=== PATIENT | female | born 2000 | race Two or more races ===

== ENCOUNTER 2024-05-31 08:41 | Outpatient (RCR) | payer OTHER, MEDICAID, SELFPAY ==
--- NOTE | 2024-05-31 08:50 | XR_ITS ---
Examination: Biophysical profile, ultrasound Date and time of exam: May 31, 2024 0854 hours INDICATIONS: Vaginal pressure and pain beginning one week ago, diagnosis maternal obesity Technique: Multiple transabdominal sonographic images of the pelvis abdomen obtained. Attention is directed to the breathing movement, gross body movement, amniotic fluid volume and tone. Findings: Amniotic fluid index 11.9 cm Total biophysical profile is 8 of 8. breathing movement is 2. Gross body movement is 2. tone is 2. Qualitative amniotic fluid volume is 2 Impression: Biophysical profile is 8 of 8.
[2024-05-31 09:48] VITALS: BP 132/77; PULSE 100; RESP 16; TEMP 36.7
== END 2024-05-31 23:59 | disposition home or self-care (01) ==
LOC: S4S1 08:41
PROVIDERS: Referring Provider Nurse Practitioner Women's Health; Visit Provider Nurse Practitioner Women's Health
DX: O99.213 Obesity complicating pregnancy, third trimester (principal); E66.9 Obesity, unspecified; Z3A.35 35 weeks gestation of pregnancy
CPT/HCPCS: 59025; 76819

== ENCOUNTER 2024-08-04 02:31 | Emergency (ER) | payer BC, MEDICAID, SELFPAY ==
[2024-08-04 02:31] VITALS: BMI 47.2
[2024-08-04 03:57] VITALS: BP 123/80; PULSE 96; RESP 16; TEMP 36.7; O2SAT 100
--- NOTE | 2024-08-04 04:05 | PD.EDRME ---
Rapid Medical Screening Exam RME Arrival date/time: 08/04/24 02:31 24-year-old female presents to the ED with a complaint of abdominal pain in the upper left and right quadrants with vomiting up to 2-3 times. Pain began early this morning. Past medical history includes on June 27 of this year. No pain to the upper left and upper right quadrant is equal in its intensity Chief Complaint: Abdominal Pain Vital signs: Vital Signs Temperature 98.1 F 08/04/24 03:57 Pulse Rate 96 08/04/24 03:57 Respiratory Rate 16 08/04/24 03:57 Blood Pressure 123/80 08/04/24 03:57 Pulse Oximetry (%) 100 08/04/24 03:57 Oxygen Delivery Method Room Air 08/04/24 03:57 Pulse ox room air 100% Vital signs reviewed by provider: Yes
[2024-08-04 04:51] LABS: Bilirubin,Urine Negative (Negative); Blood,Urine Negative (Negative); Clarity,Urine Clear (Clear/Hazy); Collection Type, Urine Clean Catch; Color,Urine Yellow (Lt Yel-Yel); Glucose, Urine Negative (Negative); Ketones,Urine Negative (Negative); Leukocyte Esterase,Urine Positive (Negative); Nitrite,Urine Negative (Negative); Protein,Urine Trace (Neg - Trace); RBC,Urine 0 /hpf (0-3); Specific Gravity,Urine 1.038 (1.001-1.035); Squamous Epithelial Cell,Urine 4 /hpf (0-5); WBC,Urine 11 /hpf (0-5)
[2024-08-04 04:52] LABS: Basophils % (Auto) 0 % (0-2.5); Eosinophils # (Auto) 0.3 Thou/mm3 (0.0-0.5); Eosinophils % (Auto) 2 % (0-10); Hematocrit 37.1 % (36.0-46.0); Hemoglobin 11.4 g/dL (12.0-16.0); Immature Granulocytes % (Auto) 1 % (0-0); Immature Granulocytes Auto 0.09 Thou/mm3 (0.00-0.00); Lymphocytes # (Auto) 1.6 Thou/mm3 (1.0-4.8); Lymphocytes % (Auto) 11 % (10-50); Mean Corpuscular HGB Conc 30.7 g/dl (31.0-37.0); Mean Corpuscular Hemoglobin 24.4 pg (25.0-35.0); Mean Corpuscular Volume 79 fL (80-100); Monocytes # (Auto) 0.9 Thou/mm3 (0.0-0.8); Monocytes % (Auto) 6 % (0-12); Neutrophils # (Auto) 11.9 Thou/mm3 (1.8-7.7); Neutrophils % (Auto) 80 % (37-80); Nucleated Red Blood Cell % 0 /100 WBC (0); Platelet Count 243 Thou/mm3 (140-440); RDW Standard Deviation 42.9 fL (36.4-46.3); Red Blood Count 4.68 Miln/mm3 (4.00-5.20); White Blood Count 14.9 Thou/mm3 (3.6-11.0)
[2024-08-04 04:58] LABS: HCG Qualitative,Urine Negative
[2024-08-04 05:13] LABS: Alanine Aminotransferase 59 U/L (10-49); Albumin, Serum 4.3 gm/dL (3.5-5.0); Albumin/Globulin Ratio 1.4 (1.2-2.2); Alkaline Phosphatase 244 U/L (46-116); Anion Gap 8 (7-16); Aspartate Amino Transferase 112 U/L (0-34); BUN/Creatinine Ratio 24 Ratio (12-20); Bilirubin,Total 0.5 mg/dL (0.3-1.2); Blood Urea Nitrogen 19 mg/dL (9-23); Calcium 8.8 mg/dL (8.3-10.6); Calcium (Corrected) 8.8 mg/dL (8.5-10.1); Chloride 108 mMol/L (98-107); Creatinine (Component) 0.8 mg/dL (0.6-1.3); Estimated Creatinine Clearance 140.4 mL/min (>60); Glucose 109 mg/dL (74-106); Lipase 44 U/L (12-53); Osmolality,Calculated 282 (275-295); Potassium 4.4 mMol/L (3.4-5.1); Sodium 140 mMol/L (136-145); Total Protein 7.3 gm/dL (5.7-8.2); eGFR > 60 See Note
[2024-08-04] MEDS: KETOROLAC INJ 60 MG/2 ML VIAL 30 MG IM (05:23)
--- NOTE | 2024-08-04 05:50 | EDNOTE_ITS ---
ED Abdominal Pain RME/HPI General Chief Complaint: Abdominal Pain Stated complaint: ABD PAIN , VOMITING AND NAUSEA X 10MINS Time seen by provider: 08/04/24 05:50 Arrival date/time: 08/04/24 02:31 Limitations: no limitations RME / HPI RME / HPI narrative: 08/04/24 02:31 24-year-old female presents to the ED with a complaint of abdominal pain in the upper left and right quadrants with vomiting up to 2-3 times. Pain began early this morning. Past medical history includes on June 27 of this year. No pain to the upper left and upper right quadrant is equal in its intensity MD complaint: abdominal pain Onset (ago): day(s) (1 day) Consistency: now resolved Related Data Previous Rx's ?Medication ?Instructions ?Recorded amoxicillin 875 mg-potassium 1 tab PO BID #14 tabs 06/18 clavulanate 125 mg tablet naproxen 500 mg tablet 500 mg PO BID PRN pain #30 t abs 09/28/22 ondansetron 4 mg disintegrating 4 mg PO Q8H #10 tabs 0 08/04/24 tablet Allergies Allergy/AdvReac Type Severity Reaction Status Date / Time Sulfa (Sulfonamide Allergy Severe Rash Verified 11/07/23 20:52 Antibiotics) Penicillins Allergy Rash Verified 11/07/23 20:52 Review of Systems Constitutional Constitutional: Reports system reviewed and no additional complaints, except as documented Eyes Eyes: Reports system reviewed and no additional complaints, except as documented, Denies dry eyes, Denies exophthalmos and Reports floaters Cardiovascular Cardiovascular: Denies chest pain with activity and Denies claudication Gastrointestinal Gastrointestinal: Reports system reviewed and no additional complaints, except as documented, Reports as per HPI and Reports abdominal pain Genitourinary Genitourinary: Reports system reviewed and no additional complaints, except as documented and Reports as per HPI Musculoskeletal Musculoskeletal: Reports system reviewed and no additional complaints, except as documented and Reports as per HPI Integumentary/Breasts Skin/Breast: Reports system reviewed and no additional complaints, except as documented and Reports as per HPI Neurologic Neurologic: Reports system reviewed and no additional complaints, except as documented and Reports as per HPI Psychiatric Psychiatric: Reports system reviewed and no additional complaints, except as documented and Reports as per HPI Past Medical History Past Medical History Comments PM COMMENT: Patient is June 27, 2024 ED Exam General Limitations: Present no limitations General appearance: Present alert and in no apparent distress Head Head exam: Present atraumatic Eye Eye exam: Present normal appearance, PERRL and EOMI ENT ENT exam: Present normal exam, normal oropharynx and mucous membranes moist Neck Neck exam: Present normal inspection, full ROM and trachea midline Chest Chest inspection: Present normal inspection and symmetric chest wall rise Respiratory Respiratory exam: Present normal lung sounds bilaterally Cardiovascular Cardiovascular exam: Present regular rate, normal rhythm and normal heart sounds Abdominal Exam Abdominal exam: Present soft (Abdomen is soft nontender without any apparent masses negative for rebound. No Ruiz sign present. ) and normal bowel sounds Extremities Exam Extremities exam: Present normal inspection and full ROM Back Exam Back exam: Present normal inspection and full ROM Neurological Exam Neurological exam: Present alert, oriented X3 and CN II-XII intact Psychiatric Psychiatric exam: Present normal affect and normal mood Skin Skin exam: Present warm, dry, intact and normal color Course Course Course Narrative: Patient had 30 mg of Toradol IM. She also had a CBC, CMP, hCG, lipase, UA, all of which were negative with the exception of the white count of the CBC which was approximately 14,000+. Quality Measures none Orders Category Date Time Status CBC Stat Lab 08/04/24 04:45 Completed Comprehensive Metabolic Panel Stat Lab 08/04/24 04:45 Completed HCG Qualitative,Urine Stat Lab 08/04/24 04:07 Completed Lipase Stat Lab 08/04/24 04:45 Completed Urinalysis Stat Lab 08/04/24 04:07 Completed Ketorolac Inj [Toradol Inj] Med 08/04/24 04:08 Discontinued 30 mg IM X1 ONE Vital Signs Vital signs: Vital Signs Temperature 98.1 F 08/04/24 03:57 Pulse Rate 96 08/04/24 03:57 Respiratory Rate 16 08/04/24 03:57 Blood Pressure 123/80 08/04/24 03:57 Pulse Oximetry (%) 100 08/04/24 03:57 Oxygen Delivery Method Room Air 08/04/24 03:57 PO2 is 100% room air Abdominal Pain MDM MDM Narrative MDM Narrative:: Patient will have Zofran 4 mg sent to the pharmacy of her choice and she is to primary care physician for follow-up to today's visit this coming week. If she is worse she may return here for further evaluation. Patient data External records reviewed:: Other (specify) Clinical information provided by:: none Social determinants that could affect healthcare access:: none Patient has the following chronic illnesses:: N/A How is presenting disease/condition affected by chronic disease/condition?: no chronic disease Evaluation data The following diagnostics were reviewed and interpreted by me:: other (specify) Lab and/or radiology exams considered but not ordered:: N/A Interpretation Summary: N/A Medications / Prescriptions Medications or Prescriptions considered but not ordered:: N/A Medication administrations:: Medication Administration History Discontinued Medications Ketorolac Tromethamine (Ketorolac Inj 60 Mg/2 Ml Vial) 30 mg IM X1 ONE Stop: 08/04/24 04:09 Last Admin: 08/04/24 05:23 Dose: 30 mg Documented By: JE Given Consultations Consultation(s) initiated? (list below): No Diagnosis Differential diagnosis abdominal pain: abdominal pain, acute appendicitis, calculus of kidney, gastroenteritis and pancreatitis Most likely diagnosis given after review of the tests above:: N/A Admission Indicated Admission indicated?: not indicated Admission Request Was there a request for admission?: No Disposition Plan Disposition Plan: Discharge Discharge Attestation Discharge Attestation: The patient and all family members were given an opportunity to ask questions and understood the discharge instructions. Discharge instructions specifically effects, indications for sooner follow up or return to the emergency department, and the expected course of current diagnosis. Patient condition: Stable Discharge Plan Plan Patient Disposition: HOME (Self Care) Discharge Disposition comment: Patient is discharged in no apparent distress Patient condition on transfer: Stable Prescriptions/Referrals Prescriptions/Med Rec: New ondansetron 4 mg tablet,disintegrating 4 mg PO Q8H Qty: 10 0RF No Action naproxen 500 mg tablet 500 mg PO BID PRN (Reason: pain) Qty: 30 0RF amoxicillin-pot clavulanate 875-125 mg tablet 1 tab PO BID Qty: 14 0RF Referrals: Jb Moura MD [Primary Care Provider] - In 1 week Problem List Clinical Impression: Abdominal pain Patient/Caregiver Discharge Instructions Education Materials: Abdominal Pain Print Language: Frisian JOHNNY/LUIS EDUARDO Supervising Physician JOHNNY/LUIS EDUARDO Supervising Physician: Yuli
== END 2024-08-04 06:15 | disposition home or self-care (01) ==
PROVIDERS: Physician Assistant; Emergency Provider Emergency Medicine; PCP Family Medicine
DX: R10.11 Right upper quadrant pain (principal); R10.12 Left upper quadrant pain; R11.2 Nausea with vomiting, unspecified
CPT/HCPCS: 36415; 80053; 81001; 81025; 83690; 85025; 96372; 99283; J1885

== ENCOUNTER 2025-03-02 00:26 | Emergency (ER) | payer BC, MEDICAID, SELFPAY ==
[2025-03-02 00:27] VITALS: BMI 44.6
[2025-03-02 01:52] VITALS: BP 121/65; PULSE 106; RESP 20; TEMP 36.9; O2SAT 97
--- NOTE | 2025-03-02 02:00 | XR_ITS ---
Examination: Complete OB ultrasound, less than 14 weeks, transabdominal Date and time of exam: March 02, 2025, 0410 hours INDICATIONS: Onset pelvic cramping today Technique: Obstetrical ultrasound images less than 14 weeks performed via transabdominal imaging Findings: A normal shaped single intrauterine gestation is present in the uterus. CRL 3.7 cm corresponds to 10 weeks 4 days gestational age Cardiac motion 176 bpm No subchorionic hemorrhage Ultrasonographic survey of visible and placental structures unremarkable. Amniotic fluid volume appears appropriate for this estimated gestational age. Right ovary 4.8 cm arterial flow Left ovary obscured by bowel gas IMPRESSION: Viable intrauterine gestation 10 weeks 4 days
--- NOTE | 2025-03-02 02:01 | XR_ITS ---
Examination: Abdomen sonogram, Limited Date and time of exam: March 02, 2025, 0418 hours INDICATIONS: Onset abdominal pelvic cramping today Technique: Real-time whittington scale transabdominal sonographic images of the upper abdomen obtained. Findings: Normal gallbladder Normal common bile duct 0.3 cm Pancreatic head 2.5 cm Liver 17.5 cm fatty infiltration lobular contour Normal hepatopetal portal venous flow Patent IVC IMPRESSION: Normal gallbladder Normal common bile duct Mild to moderate hepatomegaly no focal liver lesions
--- NOTE | 2025-03-02 02:01 | PD.EDRME ---
Rapid Medical Screening Exam [facility] Arrival date/time: 03/02/25 00:26 25F with no significant PMH presents to ED with ab pain and N/V. Patient denies dysuria and vaginal bleeding. Patient is 11 weeks . Chief Complaint: Abdominal Pain Vital signs: Vital Signs Temperature 98.4 F 03/02/25 01:52 Pulse Rate 106 H 03/02/25 01:52 Respiratory Rate 20 03/02/25 01:52 Blood Pressure 121/65 03/02/25 01:52 Pulse Oximetry (%) 97 03/02/25 01:52 Oxygen Delivery Method Room Air 03/02/25 01:52 Exam: No ab tenderness Clinical Impression: miscarriage vs vs gastritis vs drug use
[2025-03-02 02:28] LABS: Basophils # (Auto) 0.1 Thou/mm3 (0.0-0.2); Basophils % (Auto) 0 % (0-2.5); Eosinophils # (Auto) 0.2 Thou/mm3 (0.0-0.5); Eosinophils % (Auto) 1 % (0-10); Hematocrit 35.7 % (36.0-46.0); Hemoglobin 11.3 g/dL (12.0-16.0); Immature Granulocytes Auto 0.05 Thou/mm3 (0.00-0.00); Lymphocytes # (Auto) 2.6 Thou/mm3 (1.0-4.8); Lymphocytes % (Auto) 17 % (10-50); Mean Corpuscular HGB Conc 31.7 g/dl (31.0-37.0); Mean Corpuscular Hemoglobin 23.8 pg (25.0-35.0); Mean Corpuscular Volume 75 fL (80-100); Monocytes # (Auto) 0.9 Thou/mm3 (0.0-0.8); Monocytes % (Auto) 6 % (0-12); Neutrophils # (Auto) 10.9 Thou/mm3 (1.8-7.7); Neutrophils % (Auto) 75 % (37-80); Nucleated Red Blood Cell # 0.00 Thou/mm3 (0.00-0.00); Nucleated Red Blood Cell % 0 /100 WBC (0); Platelet Count 279 Thou/mm3 (140-440); RDW Standard Deviation 42.3 fL (36.4-46.3); Red Blood Count 4.74 Miln/mm3 (4.00-5.20); White Blood Count 14.7 Thou/mm3 (3.6-11.0)
[2025-03-02] MEDS: FAMOTIDINE 20 MG TABLET 40 MG PO (02:31)
[2025-03-02] MEDS: METOCLOPRAMIDE 5 MG TABLET 10 MG PO (02:32)
[2025-03-02 02:47] LABS: Collection Type, Urine Clean Catch
--- NOTE | 2025-03-02 02:50 | PD.EDADULT ---
ED General RME/HPI General Chief complaint: Abdominal Pain Stated complaint: UPPER ABD PAIN, 11 WEEKS Arrival date/time: 03/02/25 00:26 RME / HPI RME / HPI narrative: 03/02/25 00:26 25F with no significant PMH presents to ED with ab pain and N/V. Patient denies dysuria and vaginal bleeding. Patient is 11 weeks . Exam: No ab tenderness Impression: miscarriage vs vs gastritis vs drug use Related Data Previous Rx's ?Medication ?Instructions ?Recorded amoxicillin 875 mg-potassium 1 tab PO BID #14 tabs 09/28/22 clavulanate 125 mg tablet naproxen 500 mg tablet 500 mg PO BID PRN pain #30 tabs 09/28/22 ondansetron 4 mg disintegrating 4 mg PO Q8H #10 tabs 08/04/24 tablet Allergies Allergy/AdvReac Type Severity Reaction Status Date / Time Sulfa (Sulfonamide Allergy Severe Rash Verified 03/02/25 00:27 Antibiotics) Penicillins Allergy Rash Verified 03/02/25 00:27 ED Exam Narrative Physical exam: Physical Exam: GENERAL: Awake, answering questions appropriately, appears stated age, morbidly obese HEENT: NC/AT. Moist mucosa. PERRLA/EOMI. CARDIO: Heart RRR, no obvious murmurs, no JVD. PULM: No coughing or visible SOB. Lungs CTA B/L. GI: Abdomen soft, NT/ND, +BS. SKIN/MSK/EXT: No wounds/discoloration/rashes/edema/amputations. +Pedal pulses present B/L. NEURO: Oriented x3, Moves extremities x4, no focal neurologic deficits noted Course Quality Measures none Orders Category Date Time Status US OB <= 14 weeks fetus Stat Exams 03/02/25 02:00 Taken US gall bladder Stat Exams 03/02/25 02:01 Taken Beta HCG,Quantitative Stat Lab 03/02/25 02:11 Completed CBC Stat Lab 03/02/25 02:11 Completed CMP [Comprehensive Metabolic Panel] Stat Lab 03/02/25 02:11 Completed Drug Screen,Urine Stat Lab 03/02/25 02:26 Completed Lipase Stat Lab 03/02/25 02:11 Completed Urinalysis, C/S if Indicated Stat Lab 03/02/25 02:26 Completed Famotidine [Pepcid] Med 03/02/25 02:00 Discontinued 40 mg PO X1 ONE Metoclopramide [Reglan] Med 03/02/25 02:00 Discontinued 10 mg PO X1 ONE Vital Signs Vital signs: Vital Signs Temperature 98.4 F 03/02/25 01:52 Pulse Rate 106 H 03/02/25 01:52 Respiratory Rate 20 03/02/25 01:52 Blood Pressure 121/65 03/02/25 01:52 Pulse Oximetry (%) 97 03/02/25 01:52 Oxygen Delivery Method Room Air 03/02/25 01:52 Discharge Plan Plan Patient Disposition: Left Against Medical Advice Prescriptions/Referrals Prescriptions/Med Rec: No Action naproxen 500 mg tablet 500 mg PO BID PRN (Reason: pain) Qty: 30 0RF amoxicillin-pot clavulanate 875-125 mg tablet 1 tab PO BID Qty: 14 0RF ondansetron 4 mg tablet,disintegrating 4 mg PO Q8H Qty: 10 0RF Referrals: No Primary/Family,Physician [Primary Care Provider] - In 1 week Problem List Clinical Impression: Abdominal pain Patient/Caregiver Discharge Instructions Print Language: Slovenian MD Attestation MD Attestation I, Dr. Echavarria, have reviewed the history, exam, and assessment of the patient. I have evaluated the patient independently and agree with the plan of care documented by the resident Dr. Saravia. All diagnostic studies were reviewed and discussed. I confirm the diagnosis as documented by the resident. I was present during the Medical Decision Making for this patient. The patient?s plan of care was created between myself and the resident and consistent with our discussion of the patient?s case. MDM Narrative MDM hospital course (for use when minimal MDM required): HPI: 25-year-old female G5, P1 (1,0,3,1) with past medical history of bicornate uterus, morbid obesity presenting to the ED on 03/02 due to abdominal pain and concerned that she might be having another miscarriage. Patient states that she started developing bilateral flank pain earlier this morning and has progressively worsened. She states the pain is associated with nausea and she has vomited a few times; however, she denies having any fever/chills, chest pain or loss of consciousness. Patient does state that the pain is associated with some shortness of breath which has been ongoing for several weeks especially when she ambulates and some dizziness. She notes a dizzy episode while she was in the bathtub and she required assistance from her partner. She says she feels like the room is spinning and she is unstable during these episodes. On examination, patient's vitals are stable with blood pressure 120/65, mildly tachycardic with a heart rate of 106, 3 of 20, afebrile satting 97 on room air. Rest of exam outlined in physical exam section of the note. Differentials at this time include: Possible threatened , nephrolithiasis, cholelithiasis, gastritis, peptic ulcer disease Ultrasound gallbladder and pelvic ultrasound were ordered and completed; however, patient left before results could be read by radiology. Will await read from radiology and inform patient once results are in Patient seen and assessed with attending Dr. Italia Saravia, DO PGY-2 Internal Medicine - [facility] Medication Administration(s) Medication Administration History Discontinued Medications Famotidine (Famotidine 20 Mg Tablet) 40 mg PO X1 ONE Stop: 03/02/25 02:01 Last Admin: 03/02/25 02:31 Dose: 40 mg Documented By: ANNAMARIE Metoclopramide HCl (Metoclopramide 5 Mg Tablet) 10 mg PO X1 ONE Stop: 03/02/25 02:01 Last Admin: 03/02/25 02:32 Dose: 10 mg Documented By: ANNAMARIE
[2025-03-02 02:53] LABS: Alanine Aminotransferase 21 U/L (10-49); Albumin, Serum 4.5 gm/dL (3.5-5.0); Albumin/Globulin Ratio 1.4 (1.2-2.2); Alkaline Phosphatase 109 U/L (46-116); Anion Gap 11 (7-16); Aspartate Amino Transferase < 10 U/L (0-34); BUN/Creatinine Ratio 12 Ratio (12-20); Bilirubin,Total 0.2 mg/dL (0.3-1.2); Blood Urea Nitrogen 7 mg/dL (9-23); Calcium 9.4 mg/dL (8.3-10.6); Calcium (Corrected) 9.4 mg/dL (8.5-10.1); Carbon Dioxide 22.8 mMol/L (20.0-31.0); Chloride 104 mMol/L (98-107); Creatinine (Component) 0.6 mg/dL (0.6-1.3); Estimated Creatinine Clearance 179.4 mL/min (>60); Globulin 3.3 gm/dL (2.3-3.5); Glucose 97 mg/dL (74-106); Lipase 29 U/L (12-53); Osmolality,Calculated 273 (275-295); Potassium 4.0 mMol/L (3.4-5.1); Sodium 138 mMol/L (136-145); Total Protein 7.8 gm/dL (5.7-8.2); eGFR > 60 See Note
[2025-03-02 03:05] LABS: Amphetamine/Methamp Scrn,U Negative (Negative); Barbiturate Screen,Urine Negative (Negative); Benzodiazepines Screen,Urine Negative (Negative); Benzoylecgonine Screen, Ur Negative (Negative); Fentanyl Screen,Urine Negative (Negative); Opiate Screen,Urine Negative (Negative); THC Screen,Urine Negative (Negative)
[2025-03-02 03:25] LABS: Bilirubin,Urine 1+ (Negative); Blood,Urine Negative (Negative); Clarity,Urine Clear (Clear/Hazy); Color,Urine Yellow (Lt Yel-Yel); Culture Indicated,Urine Not Indicated; Glucose, Urine Negative (Negative); Ketones,Urine Trace (Negative); Leukocyte Esterase,Urine Negative (Negative); Nitrite,Urine Negative (Negative); PH,Urine 6.0 (5.0-7.0); Protein,Urine Trace (Neg - Trace); Specific Gravity,Urine >= 1.030 (1.001-1.035); Urobilinogen,Urine 0.2 mg/dL (0.0-1.0)
[2025-03-02 03:26] LABS: RBC,Urine 5 /hpf (0-3); Squamous Epithelial Cell,Urine 10 /hpf (0-5); WBC,Urine 2 /hpf (0-5)
--- NOTE | 2025-03-02 04:33 | PC.NURSE ---
CALLED PATIENT IN THE LOBBY AND OUTSIDE, NO ANSWER RECEIVED.
--- NOTE | 2025-03-02 05:18 | PC.NURSE ---
CALLED PATIENT IN THE LOBBY AND OUTSIDE, NO ANSWER RECEIVED.
--- NOTE | 2025-03-02 05:23 | PRELIM_ITS ---
Gallbladder ultrasound. March 02, 2025 0418 hours Clinical history: RUQ Findings: Fatty infiltration of the liver is noted.The visualized liver is normal in echogenicity without mass or ductal dilatation. No gallbladder calculus, wall thickening or pericholecystic fluid is identified. The common duct is normal in caliber at 3mm. No free fluid is demonstrated on the submitted images.The pancreas is unremarkable. Impression: No evidence of acute cholecystitis. Hepatic steatosis. Report Electronically Signed By: Lupe Mondragon 03/02/2025 5:22:19 AM [EST]
--- NOTE | 2025-03-02 05:27 | PRELIM_ITS ---
Obstetric ultrasound (transabdominal and transvaginal). March 02, 2025 0410 hours Clinical history: Pain, no bleeding; 11 weeks Technique: Real-time ultrasound was performed using Duplex scanning including arterial inflow, venous outflow, color and spectral Doppler analysis of both ovaries. Findings: There is an intrauterine gestation with a single live fetus of mean gestational age 10weeks and 4days (CRL= 3.7cm). cardiac activity is present at heart rate of 169beats per minute. Estimated due date by ultrasound is 09/24/2025. The uterus measures 13.8x7.6x9.5cm. The right ovary measures 4.8x1.8x2.2cm and is unremarkable. The left ovary is obscured by bowel gas. There is nofree fluid in the pelvis. Impression: Intrauterine gestation with a single live fetus of mean gestational age 10weeks and 4 days. Report Electronically Signed By: Lupe Mondragon 03/02/2025 5:27:21 AM [EST]
--- NOTE | 2025-03-02 05:30 | PC.NURSE ---
CALLED PATIENT IN THE LOBBY AND OUTSIDE, NO ANSWER RECEIVED.
== END 2025-03-02 05:31 | disposition left against medical advice (07) ==
PROVIDERS: Physician Assistant; Emergency Provider Emergency Medicine
DX: O26.891 Other specified pregnancy related conditions, first trimester (principal); R10.20 Pelvic and perineal pain unspecified side; O21.9 Vomiting of pregnancy, unspecified; Z3A.11 11 weeks gestation of pregnancy; Z53.29 Procedure and treatment not carried out because of patient's decision for other reasons
CPT/HCPCS: 36415; 76705; 76801; 80053; 80307; 81001; 83690; 84702; 85025; 99283; A9270